=== PATIENT | male | born 1965 | race Caucasian/White ===

== ENCOUNTER 2016-11-15 07:48 | Emergency (ER) | payer OTHER ==
--- NOTE | 2016-11-15 07:50 | EDPHY ---
HPI/HX/ROS/PE/MDM Narrative: CHIEF COMPLAINT: Stroke alert, left-sided deficits HPI: The patient is a 51 y/o male arriving emergently via EMS as a Stroke Alert with acute onset left-sided deficits this morning; he was last seen normal around 5:30, about 2 hours ago. He has a history of hypertension and factor V Leiden deficiency, but does not take anticoagulants. His girlfriend reports he woke up to urinate around 3:30 and she heard him fall in the bathroom. She found him sweating and "glazed" and she had to shake him to wake him up. She is not sure if he struck his head, but did find him wedged between the door and the wall. A short time later he developed abdominal cramping and had a bowel movement with notable associated diaphoresis. He was able to return to bed after this and was able to have sex with his girlfriend. She did not notice any neurologic symptoms at that time. Around 5:30, he woke up again, but was able to talk and interact normally. Sometime between 06:00-06:30, she noticed him jerk "dramatically" a couple times, but denies rhythmic shaking. When she rolled him over, she noticed left-sided hemiparesis in his arm and leg, slurred speech, and left-sided facial droop. He also began complaining of pain along his right temporal lobe. He is able to answer questions and follow commands upon assessment, but continues to have dense left hemiparesis. He denies recent surgery, prior syncope, history of seizures, chest pain, dyspnea, or any similar symptoms previously. EMS BGL was 108. Girlfriend notes they both used cannabis last night, but says they have used the same dosing previously without issue. No illegal drugs or recent alcohol. REVIEW OF SYSTEMS: Aside from elements discussed in the HPI, a comprehensive 10-point review of systems was reviewed and is negative. PMH: Hypertension - lisinopril; factor V Leiden deficiency SOCIAL HISTORY: Girlfriend at bedside. Daughter is getting today, he is visiting from [place]. No illegal drugs. Nonsmoker. Social alcohol use. PHYSICAL EXAM: General:Patient is alert, obvious left hemiparesis. ENT:Eyes are normal to inspection. ENT inspection normal. Neck: Normal inspection. Full range of motion. Respiratory:No respiratory distress. Breath sounds normal bilaterally. Cardiovascular: Tachycardic regular rate and rhythm. Strong peripheral pulses. Normal cap refill. Abdomen:The abdomen is nontender to palpation. There are no peritoneal signs. Back: Normal to inspection. No tenderness to palpation. Skin: Normal color. No rash. Warm and dry. Extremities: Normal appearance, no apparent trauma. Neuro: Oriented x3 and able to follow commands. Slurred speech. Dense hemiparesis of left arm and left leg, which are both completely flaccid. Left- sided facial droop. Left-sided neglect. ED Course: 0746: Met EMS upon arrival and took report. This is a 51 y/o male with a history of hypertension and Factor V Leiden Deficiency who presents with a 1-2 hour history of dense left hemiparesis, slurred speech, left facial droop, and a left temporal headache. He is able to follow commands and answer questions. Of note, he had an unwitnessed fall around 3:30 this morning with possible loss of consciousness and it is unclear if he struck his head, but his girlfriend denied any neurologic symptoms directly after that event. EMS BGL was within normal limits. 0747: Patient sent directly to CT. 0753: Consulted with Dr. Hernández, [place] [facility]ist. He will review scans and assess patient. 0757: Dr. Hernández assessed patient via telemedicine robot. Patient's neurologic deficits persist. 0758: Non-contrast head CT is negative per Dr. Denise, radiology. 0811: BP 166/107, HR 112. Dr. Hernández would like us to administer 10mg IV labetalol to maintain pressure under 185/110. 0815: Dr. Hernández recommends TPA and flight to [facility] for likely large-vessel occlusion. He would like us to get the CTA done here while arranging transfer if it will not delay transport. 0818: ED staff contacted [facility] for transport. They are currently staged in [place]. They will call back with an ETA. 0821: The 12 lead EKG was interpreted by myself. Sinus rhythm rate 99. See hard copy and/or "tracemaster" electronic copy for interpretation. 0822: 6.5mg IV bolus and 65TPA administered. 0830: Consulted with Dr. Hernández again. 0834: BP 174/118, tachycardic. 10mg labetalol administered. Chest x-ray negative. 0835: Updated patient's girlfriend on condition and treatment plan. I answered all her questions. 0855: Updated patient's daughter via phone. I answered all her questions. 0908: Patient has left the department with flight crew. 0913: Spoke with Dr. Denise, radiology. They see some abnormalities in the left brain on CTA, but no definite clot. Patient has already left the ED, but I will update Dr. Hernández with this information. Critical care time spent by me, Dr. Greer, exclusively with this patient was 70 minutes, exclusive of PA time and exclusive of procedures. The organ system at risk was neurovascular and I gave IV TPA, antihypertensives, continually reassessed for stability, updated family members, consulted multiple times with neurology and radiology, and arranged emergent transfer via [facility] to [facility] to prevent worsening of the patients condition. - Data Points Imaging Results: Imaging Impressions Chest X-Ray 11/15/16 07:51 Impression: 1. No active cardiopulmonary disease seen. Head CT 11/15/16 07:51 Impression: 1. Normal CT brain without contrast. 2. No definite infarct. 3. Consider MRI of the brain without and with contrast enhancement, if there is continued clinical concern. Findings and recommendations discussed with Emergency Department physician, Tre Greer M.D. at 0757 hours on November 15, 2016. Final report concurs with initial preliminary interpretation. Head CTA 11/15/16 08:18 Impression: 1. Mild atherosclerotic disease bilateral carotid bulbs, right worse than left, with soft plaque in the right carotid bulb. 2. No evidence of carotid or vertebral dissection, flow-limiting stenosis, occlusion, or intraluminal thrombi. 3. Patent vertebrobasilar system. Measurement of carotid stenosis is based on the residual internal carotid diameter with [place] Symptomatic Carotid Endarterectomy Trial (NASCET) based stenosis levels. CT Angiogram of the Brain Clinical Indications: Stroke alert. Left-sided weakness. Technique: CT angiogram of the brain and neck was performed with the uneventful intravenous administration of 85 mL Isovue-370 contrast. Multiplanar reconstructions including 3D reconstructions performed and evaluated on [employer] workstation in order to better evaluate the [place] vessels. Images were manipulated by the radiologist at the computer workstation. Dose reduction techniques were utilized. Findings: Major vessels of the [place] are adequately displayed, demonstrating no evidence of aneurysm, vascular malformation, flow-limiting stenosis, or occlusion. Bilateral cavernous internal carotid arteries and vertebrobasilar system demonstrates no evidence of intraluminal thrombi, definite aneurysm, occlusion, or dissection. Slight diminished flow in the peripheral left middle cerebral artery branches when compared to the right without evidence of complete occlusion. Slight beading of the distal left middle cerebral artery M2 branches. Superior sagittal sinus, transverse sinuses , and major veins demonstrate no evidence of intraluminal thrombi. Impression: 1. No evidence of intraluminal thrombi or complete occlusion of the major [place] vessels. 2. Slight asymmetric diminished flow in the peripheral branches of the left middle cerebral artery with minimal beading of the distal left M2 branch and therefore mild vasculitis cannot be entirely excluded. However, this may represent artifact from suboptimal contrast enhancement. 3. No evidence of thrombosis of the superior sagittal sinus or transverse sinuses. Findings and recommendations discussed with Emergency Department physician, Tre Greer M.D. at 0910 hours on November 15, 2016. Final report concurs with initial preliminary interpretation. Cosigned: Fito Sanchez M.D. Neck CTA 11/15/16 08:21 Impression: 1. Mild atherosclerotic disease bilateral carotid bulbs, right worse than left, with soft plaque in the right carotid bulb. 2. No evidence of carotid or vertebral dissection, flow-limiting stenosis, occlusion, or intraluminal thrombi. 3. Patent vertebrobasilar system. Measurement of carotid stenosis is based on the residual internal carotid diameter with [place] Symptomatic Carotid Endarterectomy Trial (NASCET) based stenosis levels. CT Angiogram of the Brain Clinical Indications: Stroke alert. Left-sided weakness. Technique: CT angiogram of the brain and neck was performed with the uneventful intravenous administration of 85 mL Isovue-370 contrast. Multiplanar reconstructions including 3D reconstructions performed and evaluated on [employer] workstation in order to better evaluate the [place] vessels. Images were manipulated by the radiologist at the computer workstation. Dose reduction techniques were utilized. Findings: Major vessels of the [place] are adequately displayed, demonstrating no evidence of aneurysm, vascular malformation, flow-limiting stenosis, or occlusion. Bilateral cavernous internal carotid arteries and vertebrobasilar system demonstrates no evidence of intraluminal thrombi, definite aneurysm, occlusion, or dissection. Slight diminished flow in the peripheral left middle cerebral artery branches when compared to the right without evidence of complete occlusion. Slight beading of the distal left middle cerebral artery M2 branches. Superior sagittal sinus, transverse sinuses , and major veins demonstrate no evidence of intraluminal thrombi. Impression: 1. No evidence of intraluminal thrombi or complete occlusion of the major [place] vessels. 2. Slight asymmetric diminished flow in the peripheral branches of the left middle cerebral artery with minimal beading of the distal left M2 branch and therefore mild vasculitis cannot be entirely excluded. However, this may represent artifact from suboptimal contrast enhancement. 3. No evidence of thrombosis of the superior sagittal sinus or transverse sinuses. Findings and recommendations discussed with Emergency Department physician, Tre Greer M.D. at 0910 hours on November 15, 2016. Final report concurs with initial preliminary interpretation. Cosigned: Fito Sanchez M.D. Imaging: Discussed imaging studies w/ call center professional Radiologist, I viewed and interpreted images myself Laboratory Results: Laboratory Results 11/15/16 07:56 11/15/16 07:56 11/15/16 11/15/16 11/15/16 07:56 07:56 07:56 WBC RBC Hgb POC Hgb Hct POC Hct MCV MCH MCHC RDW Plt Count MPV Neut % (Auto) Lymph % (Auto) [place] % (Auto) Eos % (Auto) Baso % (Auto) Nucleat RBC Rel Count Absolute Neuts (auto) Absolute Lymphs (auto) Absolute Monos (auto) Absolute Eos (auto) Absolute Basos (auto) Absolute Nucleated RBC Immature Gran % Immature Gran # PT 12.3 SEC SEC (12.0-15.0) INR 0.92 (0.83-1.16) POC Sodium Sodium 139 mEq/L mEq/L (134-144) POC Potassium Potassium 4.9 mEq/L mEq/L (3.5-5.2) POC Chloride Chloride 103 mEq/L mEq/L (97-110) Carbon Dioxide 22 mEq/l mEq/l (22-31) Anion Gap 14 mEq/L mEq/L (8-16) POC BUN BUN 16 mg/dL mg/dL (7-23) Creatinine 1.1 mg/dL mg/dL (0.7-1.3) POC Creatinine Estimated GFR > 60 Glucose 111 mg/dL H mg/dL (70-100) POC Glucose Calcium 10.2 mg/dL mg/dL (8.5-10.4) Troponin I < 0.012 ng/mL ng/mL (0.000-0.034) 11/15/16 11/15/16 07:56 07:47 WBC 5.29 10^3/uL 10^3/uL (3.80-9.50) RBC 4.98 10^6/uL 10^6/uL (4.40-6.38) Hgb 14.8 g/dL g/dL (13.7-17.5) POC Hgb 15.6 gm/dL gm/dL (13.7-17.5) Hct 42.6 % % (40.0-51.0) POC Hct 46 % % (40-51) MCV 85.5 fL fL (81.5-99.8) MCH 29.7 pg pg (27.9-34.1) MCHC 34.7 g/dL g/dL (32.4-36.7) RDW 12.1 % % (11.5-15.2) Plt Count 284 10^3/uL 10^3/uL (150-400) MPV 9.9 fL fL (8.7-11.7) Neut % (Auto) 55.7 % % (39.3-74.2) Lymph % (Auto) 29.7 % % (15.0-45.0) Clare % (Auto) 10.8 % % (4.5-13.0) Eos % (Auto) 2.5 % % (0.6-7.6) Baso % (Auto) 0.9 % % (0.3-1.7) Nucleat RBC Rel Count 0.0 % % (0.0-0.2) Absolute Neuts (auto) 2.95 10^3/uL 10^3/uL (1.70-6.50) Absolute Lymphs (auto) 1.57 10^3/uL 10^3/uL (1.00-3.00) Absolute Monos (auto) 0.57 10^3/uL 10^3/uL (0.30-0.80) Absolute Eos (auto) 0.13 10^3/uL 10^3/uL (0.03-0.40) Absolute Basos (auto) 0.05 10^3/uL 10^3/uL (0.02-0.10) Absolute Nucleated RBC 0.00 10^3/uL 10^3/uL (0-0.01) Immature Gran % 0.4 % % (0.0-1.1) Immature Gran # 0.02 10^3/uL 10^3/uL (0.00-0.10) PT INR POC Sodium 139 mEq/L mEq/L (134-144) Sodium POC Potassium 4.4 mEq/L mEq/L (3.3-5.0) Potassium POC Chloride 103 mEq/L mEq/L (97-110) Chloride Carbon Dioxide Anion Gap POC BUN 17 mg/dL mg/dL (7-23) BUN Creatinine POC Creatinine 1.2 mg/dL mg/dL (0.7-1.3) Estimated GFR Glucose POC Glucose 116 mg/dL H mg/dL (70-100) Calcium Troponin I Medications Given: Discontinued Medications Alteplase, Recombinant (Activase) 6.97814 mg 0.09 mg/kg (6.37648 mg) IV ONCE ONE PRN Reason: Protocol Stop: 11/15/16 08:19 Last Admin: 11/15/16 08:30 Dose: 6.31375 mg Point of Care Test Results: 11/15/16 07:47 POC Sodium 139 POC Potassium 4.4 POC Chloride 103 POC BUN 17 POC Creatinine 1.2 POC Glucose 116 H General Initial Vital Signs: Initial Vital Signs Heart Rate 117 H 11/15/16 08:02 Respiratory Rate 18 11/15/16 08:02 Blood Pressure 149/99 H 11/15/16 08:02 O2 Sat (%) 98 11/15/16 08:02 O2 Delivery Mode Nasal Cannula O2 (L/minute) 2 Allergies/Adverse Reactions: No Known Allergies Allergy (Unverified 11/15/16 08:19) Home Medications: Medication Instructions Recorded Lisinopril 11/15/16 Departure - Departure Disposition: Acute Care Hospital Not [facility] Clinical Impression: Right-sided cerebrovascular accident (CVA) Condition: Serious Referrals: Patient,NotPresent [Primary Care Provider] - As per Instructions Report Scribed for: Tre Greer Report Scribed by: Sol Dillon Date of Report: 11/15/16 Time of Report: 07:50 Physician Review and Approval Statement: Portions of this note were transcribed by an ED scribe. I personally performed the history, physical exam, and medical decision making; and confirm the accuracy of the information in the transcribed note.
[2016-11-15] MEDS ORDERED: ALTEPLASE 50 MG/50 ML VIAL ONE (08:00)
[2016-11-15 08:02] LABS: % IMMATURE GRANULYOCYTES 0.4 % (0.0-1.1); ABSOLUTE IMMATURE GRANULOCYTES 0.02 10^3/uL (0.00-0.10); ADD DIFF? NO; ADD MORPH? NO; ADD SCAN? NO; ATYPICAL LYMPHOCYTE FLAG 0 (0-99); FRAGMENT RBC FLAG 0 (0-99); HEMATOCRIT 42.6 % (40.0-51.0); HEMOGLOBIN 14.8 g/dL (13.7-17.5); LEFT SHIFT FLG 0 (0-99); LIPEMIA HEMOLYSIS FLAG 90 (0-99); MEAN CELL HEMOGLOBIN 29.7 pg (27.9-34.1); MEAN CELL HEMOGLOBIN CONCENTR. 34.7 g/dL (32.4-36.7); MEAN CELL VOLUME 85.5 fL (81.5-99.8); MEAN PLATELET VOLUME 9.9 fL (8.7-11.7); PLATELET CLUMPS FLAG 0 (0-99); PLATELET COUNT 284 10^3/uL (150-400); RED BLOOD CELL COUNT 4.98 10^6/uL (4.40-6.38); RED CELL DISTRIBUTION WIDTH 12.1 % (11.5-15.2)
[2016-11-15 08:12] LABS: ANION GAP 14 mEq/L (8-16); CALCIUM 10.2 mg/dL (8.5-10.4); CARBON DIOXIDE 22 mEq/l (22-31); CHLORIDE 103 mEq/L (97-110); CREATININE 1.1 mg/dL (0.7-1.3); GLOMERULAR FILTRATION RATE > 60; GLUCOSE 111 mg/dL (70-100); POTASSIUM 4.9 mEq/L (3.5-5.2); SODIUM 139 mEq/L (134-144)
[2016-11-15] MEDS ORDERED: NS 1,000 ML IV ONE (08:12)
[2016-11-15] MEDS ORDERED: LABETALOL HCL 5 MG/ML 20 ML MDV ONE (08:13)
[2016-11-15] MEDS ORDERED: ALTEPLASE 100 MG/100 ML VIAL IV ONE ×2 (08:18→08:26)
[2016-11-15] MEDS ORDERED: ALTEPLASE 1 MG/ML SYR IV ONE (08:18)
[2016-11-15] MEDS ORDERED: NS 50 ML IV ONE (08:18)
[2016-11-15 08:20] LABS: INR 0.92 (0.83-1.16); PROTIME(PATIENT) 12.3 SEC (12.0-15.0)
[2016-11-15] MEDS ORDERED: IOPAMIDOL (ISOVUE 370) 100 ML BTL IV ONE (08:20)
--- NOTE | 2016-11-15 08:23 | CPEKG ---
Heart Rate: 99 RR Interval: 606 P-R Interval: 200 QRSD Interval: 88 QT Interval: 328 QTC Interval: 421 P [place]: 64 QRS [place]: 47 T [place]: 13 EKG Severity - ABNORMAL ECG - EKG Impression: SINUS RHYTHM EKG Impression: PROBABLE LEFT VENTRICULAR HYPERTROPHY Electronically Signed By: Edy Kathleen 19-Nov-2016 07:41:15
[2016-11-15] MEDS: LABETALOL HCL 5 MG/ML 20 ML MDV IVP PRN ×2 (08:25→08:40)
[2016-11-15] MEDS ORDERED: NS 100 ML BAG IV ONE (08:27)
[2016-11-15] MEDS ORDERED: LABETALOL HCL 50 MG/10 ML SYR IVP ONE (08:41)
[2016-11-15 09:18] VITALS: BP 154/103; RESP 18
[2016-11-15 09:34] VITALS: TEMP 98.6
[2016-11-15 09:38] VITALS: PULSE 95; O2SAT 96
== END 2016-11-15 09:05 | disposition short-term general hospital (02) ==
DX: I63.59 Cerebral infarction due to unspecified occlusion or stenosis of other cerebral artery (principal); I10 Essential (primary) hypertension; E86.9 Volume depletion, unspecified; D68.2 Hereditary deficiency of other clotting factors
CPT/HCPCS: 82947-QW; 96374; J2997; J3490; Q9967